=== PATIENT | female | born 1995 | race African-American/Black ===

== ENCOUNTER 2018-04-21 17:18 | Emergency (ER) | payer MEDICAID ==
[~2018-04-21] VITALS: Ht 149.9 cm; Wt 57.9 kg
--- NOTE | 2018-04-21 17:44 | NUR ---
PT AMBULATORY TO ROOM 4 W/ C/O ABD CRAMPING THAT STARTED 3 DAYS AGO. PT ALSO STATES SHE HAS HAD RECENT CONSTIPATION. HX 2 ABORTIONS. PT RESTING ON BECKI. NURIA. DENIES VB/VD.
[2018-04-21] MEDS ORDERED: PHENAZOPYRIDINE 200 MG TABLET ONE (17:59)
[2018-04-21 18:09] LABS: BASOPHILS # (AUTO) 0.04 x10^3/uL (0-0.1); BASOPHILS % (AUTO) 1 % (0-1); EOSINOPHILS # (AUTO) 0.09 x10^3/uL (0-0.4); EOSINOPHILS % (AUTO) 1 % (1-7); LYMPHOCYTES # (AUTO) 1.96 x10^3/uL (1-3.4); LYMPHOCYTES % (AUTO) 32 % (22-44); MD NO; MEAN CORPUSCULAR HEMOGLOBIN 30.7 pg (27.0-34.8); MEAN CORPUSCULAR HGB CONC 34.4 g/dL (32.4-35.8); MEAN CORPUSCULAR VOLUME 89.2 fL (80-100); MEAN PLATELET VOLUME 8.3 fL (7.4-10.4); MONOCYTES # (AUTO) 0.53 x10^3/uL (0.2-0.8); MONOCYTES % (AUTO) 9 % (2-9); NEUTROPHILS % (AUTO) 58 % (42-75); PLATELET COUNT 262 x10^3/uL (130-400); RED BLOOD COUNT 4.51 x10^6/uL (3.82-5.3); RED CELL DISTRIBUTION WIDTH 13.4 % (9.6-15.2)
[2018-04-21 18:18] LABS: ALANINE AMINOTRANSFERASE 24 U/L (12-78); ALBUMIN 3.9 g/dL (3.4-5.0); ANION GAP 6 mmol/L (5-15); CALCIUM 8.7 mg/dL (8.5-10.1); CHLORIDE 107 mmol/L (98-107); CREATININE 0.91 mg/dL (0.55-1.02)
[2018-04-21 18:22] LABS: ALKALINE PHOSPHATASE 97 U/L (45-117); BILIRUBIN,TOTAL 0.1 mg/dL (0.2-1.0); TOTAL PROTEIN 7.5 g/dL (6.4-8.2)
[2018-04-21 18:27] LABS: MICROSCOPIC NOT IND
[2018-04-21 18:33] LABS: CULTURE INDICATED? NO
--- NOTE | 2018-04-21 18:39 | NUR ---
PT CHART REVIEWED AND PLACED FOR RECHECK.
[2018-04-21] MEDS ORDERED: PHENAZOPYRIDINE 200 MG TABLET PO ONE (19:00)
--- NOTE | 2018-04-21 19:09 | NUR ---
RECEIVED BS REPORT FROM JANAY RN TO [facility]. CARE. PT. RESTING ON GURNEY WITH HEADPHONE IN AND WATCHING CELL PHONE VIDEOS. PT. WITH NADN. PT. AWARE OF POC FOR US; AWATING THIS. CONTINUOUS PULSE OX AND B/P MONITORS IN PLACE. CALL LIGHT IN REACH. ALL SAFETY MEASURES OBSERVED.
--- NOTE | 2018-04-21 19:09 | NUR ---
REPORT GIVEN TO MOHSEN ROMANO RN.
--- NOTE | 2018-04-21 20:16 | NUR ---
PT. BACK FROM US. AWAITING US READ. PT. DENIES NEEDS AT THIS TIME. NURIA.
--- NOTE | 2018-04-21 20:17 | NUR ---
US READ NOW BACK; CHART UP FOR RECHECK BY SEMAJ.
--- NOTE | 2018-04-21 20:41 | NUR ---
GURMEET LEMA IN TO DISCUSS D/C PLAN WITH PT.
[2018-04-21 20:52] VITALS: BP 111/68
== END 2018-04-21 20:54 | disposition home or self-care (01) ==
LOC: ED 20:46
DX: O34.81 Maternal care for other abnormalities of pelvic organs, first trimester (principal); N83.291 Other ovarian cyst, right side; Z3A.01 Less than 8 weeks gestation of pregnancy
CPT/HCPCS: 36415; 76830; 80053; 81003; 84703; 85025; 99284

== ENCOUNTER 2018-10-24 20:27 | Emergency (ER) | payer MEDICAID ==
[~2018-10-24] VITALS: Ht 149.9 cm; Wt 56.9 kg
[2018-10-24 20:28] VITALS: BP 115/79
== END 2018-10-24 21:49 | disposition home or self-care (01) ==
LOC: ED 21:33
DX: K29.00 Acute gastritis without bleeding (principal); F12.188 Cannabis abuse with other cannabis-induced disorder; F17.200 Nicotine dependence, unspecified, uncomplicated
CPT/HCPCS: 36415; 80053; 81001; 83690; 84703; 85025; 99283; Q0162